=== PATIENT | female | born 1970 | race Caucasian/White ===

== ENCOUNTER 2018-04-13 21:47 | Emergency (ER) | payer MEDICARE, MEDICAID ==
[~2018-04-13] VITALS: Ht 162.6 cm; Wt 90.0 kg
[2018-04-13 21:50] VITALS: BP 158/92
== END 2018-04-13 22:30 | disposition left against medical advice (07) ==
LOC: ER 21:47
DX: R51 Headache (principal); Z53.21 Procedure and treatment not carried out due to patient leaving prior to being seen by health care provider; Y08.89XA Assault by other specified means, initial encounter; Y93.89 Activity, other specified; Y92.89 Other specified places as the place of occurrence of the external cause; Y99.8 Other external cause status

== ENCOUNTER 2020-10-11 12:10 | Emergency (ER) | payer MEDICARE, MEDICAID ==
[~2020-10-11] VITALS: Ht 167.6 cm; Wt 105.0 kg
[2020-10-11 12:31] VITALS: BP 159/82
[2020-10-11] MEDS ORDERED: ACETAMINOPHEN 325MG TABLET PO ONE (14:00)
[2020-10-11] MEDS ORDERED: IBUP-2029 MT (14:04)
== END 2020-10-11 14:30 | disposition home or self-care (01) ==
LOC: ER 12:10
DX: M79.18 Myalgia, other site (principal); F19.10 Other psychoactive substance abuse, uncomplicated; F17.200 Nicotine dependence, unspecified, uncomplicated; F31.9 Bipolar disorder, unspecified
CPT/HCPCS: 99282

== ENCOUNTER 2022-03-14 11:21 | Emergency (ER) | payer MEDICARE, MEDICAID ==
[~2022-03-14] VITALS: Ht 165.1 cm; Wt 77.0 kg
[~2022-03-14 11:21] MED LIST: IBUP-2029 MT
[2022-03-14 11:24] VITALS: BP 130/65
== END 2022-03-14 12:44 | disposition left against medical advice (07) ==
LOC: ER 12:12
DX: Z53.21 Procedure and treatment not carried out due to patient leaving prior to being seen by health care provider (principal)

== ENCOUNTER 2022-05-18 00:25 | Emergency (ER) | payer OTHER, MEDICAID ==
[~2022-05-18] VITALS: Ht 165.1 cm; Wt 90.0 kg
[2022-05-18] MEDS ORDERED: NALO4SPR BOTHNSTRLS (01:37)
[2022-05-18] MEDS ORDERED: ONDA4TAB50 MT (01:37)
[2022-05-18] MEDS ORDERED: ONDANSETRON HCL 4MG/2ML INJ IV ONE (01:45)
[2022-05-18 02:47] VITALS: BP 159/84
== END 2022-05-18 02:50 | disposition home or self-care (01) ==
LOC: ER 00:25
DX: N89.8 Other specified noninflammatory disorders of vagina (principal); T40.2X1A Poisoning by other opioids, accidental (unintentional), initial encounter; Y92.89 Other specified places as the place of occurrence of the external cause; F31.9 Bipolar disorder, unspecified; I25.2 Old myocardial infarction
CPT/HCPCS: 96374; 99283; J2405